=== PATIENT | female | born 1975 ===

== ENCOUNTER 2022-01-18 06:25 | Day surgery (SDC) | payer BC, OTHER ==
[~2022-01-18 06:25] MED LIST: Lactated Ringers 1,000 ML IV SCH
[2022-01-18] MEDS ORDERED: Bupivacaine 0.25% 30 ML SDV ONE (07:14)
[2022-01-18] MEDS ORDERED: Bupivacaine 0.25%/EPINEPHrine 1:200,000 10 ML SDV ONE ×2 (07:14→08:56)
[2022-01-18] MEDS ORDERED: Lidocaine 2% 5 ML SDV ONE ×2 (07:17→07:51)
[2022-01-18] MEDS ORDERED: Albuterol 0.083% 2.5 MG/3 ML Neb Soln NEB PRN (07:38)
[2022-01-18] MEDS ORDERED: HYDROmorphone 1 MG/ML Syringe IVPUSH PRN (07:38)
[2022-01-18] MEDS ORDERED: Morphine 4 MG/ML VIAL IVPUSH PRN (07:38)
[2022-01-18] MEDS ORDERED: Metoclopramide 10 MG/2 ML SDV IVPUSH PRN (07:38)
[2022-01-18] MEDS ORDERED: fentaNYL 50 MCG/ML SDV IVPUSH PRN (07:38)
[2022-01-18] MEDS ORDERED: Ondansetron 4 MG/2 ML SDV IVPUSH PRN (07:38)
[2022-01-18] MEDS ORDERED: Naloxone 0.4 MG/ML SDV IVPUSH PRN (07:38)
[2022-01-18] MEDS ORDERED: Propofol 200 MG/20 ML SDV ONE (07:50)
[2022-01-18] MEDS ORDERED: Midazolam 1 MG/ML 2 ML SDV ONE (07:51)
[2022-01-18] MEDS ORDERED: fentaNYL 100 MCG/2 ML SDV ONE (07:51)
[2022-01-18] MEDS ORDERED: ceFAZolin 2 GM in Premix Bag 1 BAG IV SCH (08:00)
[2022-01-18] MEDS ORDERED: Morphine 2 MG/ML SYRINGE IVPUSH PRN (08:17)
[2022-01-18] MEDS ORDERED: Tranexamic Acid 1,000 MG/10 ML Vial ONE (08:46)
[2022-01-18] MEDS ORDERED: Water For Injection, Sterile 20 ML ONE (08:46)
[2022-01-18] MEDS ORDERED: ceFAZolin 1 GM Vial ONE (08:46)
[2022-01-18] MEDS ORDERED: Ondansetron 4 MG/2 ML SDV ONE ×2 (08:56→11:22)
[2022-01-18] MEDS ORDERED: Ketorolac 30 MG/ML SDV ONE (11:23)
== END 2022-01-18 12:55 | disposition home or self-care (01) ==
LOC: MW.SDS 06:25
PROVIDERS: ATTEND Orthopaedic Surgery
DX: S83.511A Sprain of anterior cruciate ligament of right knee, initial encounter (principal); S83.211A Bucket-handle tear of medial meniscus, current injury, right knee, initial encounter; M25.861 Other specified joint disorders, right knee; Z68.31 Body mass index [BMI] 31.0-31.9, adult; Z90.49 Acquired absence of other specified parts of digestive tract; Z98.890 Other specified postprocedural states; Z79.1 Long term (current) use of non-steroidal anti-inflammatories (NSAID); Z79.83 Long term (current) use of bisphosphonates; Z79.899 Other long term (current) drug therapy; E66.9 Obesity, unspecified; X50.1XXA Overexertion from prolonged static or awkward postures, initial encounter
CPT/HCPCS: 29881; 29888; 81025; C1713; J0131; J0690; J1885; J2405; J2704; J3010; J3490; J7120; 01400; 64450; 76942; J2250